=== PATIENT | male | born 1990 | race Two or more races ===

== ENCOUNTER 2019-08-28 17:28 | Emergency (ER) | payer MEDICAID, OTHER ==
[~2019-08-28] VITALS: Ht 188 cm; Wt 113.4 kg
[2019-08-28 17:53] VITALS: BP 150/93
== END 2019-08-28 19:27 | disposition left against medical advice (07) ==
LOC: ER 17:35
DX: M25.512 Pain in left shoulder (principal); Z53.21 Procedure and treatment not carried out due to patient leaving prior to being seen by health care provider
CPT/HCPCS: 73030

== ENCOUNTER 2019-09-29 06:32 | Emergency (ER) | payer MEDICAID ==
[~2019-09-29] VITALS: Ht 188 cm; Wt 113.4 kg
[2019-09-29 06:44] VITALS: BP 152/99
[2019-09-29] MEDS ORDERED: ETOMIDATE (2MG/ML) 20ML VIAL IV ONE (06:45)
== END 2019-09-29 08:48 | disposition home or self-care (01) ==
LOC: ER 06:32
DX: M24.412 Recurrent dislocation, left shoulder (principal); F17.210 Nicotine dependence, cigarettes, uncomplicated
CPT/HCPCS: 23650; 73020; 73030; 99285; J7030

== ENCOUNTER → 2019-11-16 | Emergency (ER) | payer MEDICAID ==
[~2019-11-16] VITALS: Ht 188 cm; Wt 113.4 kg
[~2019-11-16] MED LIST: ETOMIDATE (2MG/ML) 20ML VIAL IV ONE
[2019-11-16 20:30] VITALS: BP 145/89
== END | disposition home or self-care (01) ==
LOC: ER 16:57
DX: M24.412 Recurrent dislocation, left shoulder (principal); F17.210 Nicotine dependence, cigarettes, uncomplicated
CPT/HCPCS: 23650; 73030

== ENCOUNTER 2021-08-16 18:58 | Emergency (ER) | payer MEDICAID ==
[~2021-08-16] VITALS: Ht 188 cm; Wt 104.3 kg
[2021-08-16] MEDS ORDERED: IBUPROFEN 800 MG TAB PO ONE (19:30)
[2021-08-16 20:09] VITALS: BP 161/96
== END 2021-08-16 21:19 | disposition home or self-care (01) ==
LOC: ER 18:59
DX: S20.212A Contusion of left front wall of thorax, initial encounter (principal); W18.39XA Other fall on same level, initial encounter; Y93.39 Activity, other involving climbing, rappelling and jumping off; Y92.89 Other specified places as the place of occurrence of the external cause; Y99.8 Other external cause status
CPT/HCPCS: 71101

== ENCOUNTER 2022-02-09 19:58 | Emergency (ER) | payer MEDICAID ==
[2022-02-09 20:07] VITALS: BP 137/80
[2022-02-09] MEDS ORDERED: DEXA6TAB PO (22:22)
[2022-02-09] MEDS ORDERED: AZITTAB PO (22:22)
[2022-02-09] MEDS ORDERED: PROM1SOL4 PO (22:23)
== END 2022-02-09 22:26 | disposition home or self-care (01) ==
LOC: ER 19:58
DX: J40 Bronchitis, not specified as acute or chronic (principal); F17.210 Nicotine dependence, cigarettes, uncomplicated; F12.10 Cannabis abuse, uncomplicated
CPT/HCPCS: 71045

== ENCOUNTER 2024-05-28 10:17 | Emergency (ER) | payer MEDICAID ==
[~2024-05-28] VITALS: Ht 188 cm; Wt 92.6 kg
[~2024-05-28 10:17] MED LIST changes: +AZITTAB PO; +DEXA6TAB PO; -ETOMIDATE (2MG/ML) 20ML VIAL IV ONE; +PROM1SOL4 PO
--- NOTE | 2024-05-28 10:35 | ED.PDOC ---
Musculoskeletal HPI Comments 34-year-old male presents with a chief complaint of left foot pain after he stepping on a nail yesterday Pain located to volar aspect of metatarsal Was able to remove the foreign body but now complains of pain with ambulation Denies numbness tingling Able to ambulate w/ no assistive devices Last TDAP: unknown Time Seen by MD: 10:29 Primary Care Provider: NONE Reviewed Notes: Nurses Notes, Medications, Allergies Allergies: Coded Allergies: NO KNOWN ALLERGIES (Unverified , 08/28/19) Home Meds Active Scripts Naproxen (Naproxen) 500 Mg Tab, 500 MG PO BID for 7 Days, #14 TAB 0 Refills Prov:VIRA RUFF HANDLE SANDER OPERATOR 05/28/24 Ciprofloxacin Hcl (Cipro) 500 Mg Tab, 1 TAB PO BID for 7 Days, #14 TAB 0 Refills Prov:VIRA RUFF HANDLE SANDER OPERATOR 05/28/24 Promethazine-Dm (Promethazine Dm 6.25-15 mg/5Ml) 1 Rubi Rubi, 1 RUBI PO PRN, #50 ML 0 Refills 5ml every 4 to 6 hours as needed for cough Prov:DOLLY ODONNELL 02/09/22 Azithromycin (Zithromax Z-Lizandro) 250 Mg Tab, 250 MG PO DAILY for 4 Days, #4 TAB 0 Refills Prov:DOLLY ODONNELL 02/09/22 Dexamethasone (Dexamethasone) 6 Mg Tab, 6 MG PO DAILY for 5 Days, #5 TAB 0 Refills Prov:DOLLY ODONNELL 02/09/22 Information Source: Patient Past Medical History PAST MEDICAL HISTORY: Denies Surgical History: Denies all surgeries Family History Family History: Reviewed,noncontributory to illness, Family hx of DM, Family hx of Cancer, Family hx of heart jean-paul Social History Smoker: Cigarettes, Less Than 1 Pack/Day Alcohol: Denies ETOH Use Drugs: Marijuana Lives In: Home All Other Systems: Reviewed and Negative (Per HPI) Physical Exam General Appearance: No Apparent Distress, Normal HEENT: Normal ENT Inspection, Pharynx Normal, TMs Normal Neck: Full Range of Motion, Non-Tender, Normal, Normal Inspection Respiratory: Chest Non-Tender, Lungs Clear, No Accessory Muscle Use, No Respiratory Distress, Normal Breath Sounds Cardiovascular: No Edema, No JVD, No Murmur, No Gallop, Normal Peripheral Pulses, Regular Rate/Rhythm Breast Exam: Deferred Gastrointestinal: No Organomegaly, Non Tender, No Pulsatile Mass, Normal Bowel Sounds, Soft Genitalia: Deferred Pelvic: Deferred Rectal: Deferred Extremities: No calf tenderness, Normal capillary refill, Normal inspection, Normal range of motion, Non-tender, No pedal edema Musculoskeletal : Apperance: Normal Neurologic: Alert, card dealer II-XII nml as Tested, No Motor Deficits, Normal Affect, Normal Mood, No Sensory Deficits Cerebellar Function: Normal Reflexes: Normal Skin: Dry, Normal Color, Warm Lymphatic: No Adenopathy Was a procedure done? Was a procedure done?: No Images 1 - Pinpoint wound Differential Diagnosis EXT Differential Diagnosis: Fracture, Sprain, Other X-Ray, Labs, Meds, VS Vital Signs Date Time Temp Pulse Resp B/P (MAP) Pulse Ox O2 Delivery O2 Flow Rate FiO2 05/28/24 10:53 98.0 86 18 178/94 (122) 99 98.0 05/28/24 10:53 86 05/28/24 10:41 98.0 86 18 178/94 (122) 99 Current Medications Medications (Trade) Dose Ordered Sig/Darvin Route Start Time Stop Time Status Last Admin Diphtheria/ Tetanus/Acell Pertussis (Boostrix T-Dap) 0.5 ml ONCE ONCE IM 05/28/24 10:45 05/28/24 10:49 DC 05/28/24 11:16 Ketorolac Tromethamine (Toradol Injection) 30 mg ONCE ONCE IM 05/28/24 11:30 05/28/24 11:39 DC 05/28/24 11:46 PATIENT: EDDIE BLACKWOODCCT: [id number]: [id number] : 1990 LOC: ER ROOM / BED: / AGE / SEX: 34 / M ADM STATUS: REG ER SERVICE 1034 ORDERING PHYSICIAN: VIRA RUFF NP PROCEDURE(s): LFOOT - L FOOT 3 VIEW XRAY REASON: stepped on nail/ possible fracture or foreign body ORDER NUMBER(s): [id number], ACCESSION NUMBER(s): [id number] PROCEDURE: Left foot radiographs. INDICATION: 34 years old, Male; stepped on nail/ possible fracture or foreign body.. TECHNIQUE: 3 views of the left foot were obtained. COMPARISON: None FINDINGS: There is no evidence of fracture or dislocation. Joint spaces are maintained. The soft tissues are unremarkable. IMPRESSION: 1. No fracture or dislocation. ATED BY: ADELA BERNAL MD DICTATED DATE/TIME: 05/28/241116 SIGNED BY: ADELA BERNAL MD SIGNED DATE/TIME: 05/28/241116 X-Ray, Labs, Meds, VS Comment After ROS physical examination imaging was ordered to rule out body fracture. Findings are unremarkable Tdap updated Antibiotics prescribed for the presenting symptoms Patient ambulated with steady On reevaluation, patient had symptomatic improvement. Patient is stable for discharge at this time. External notes reviewed. Test results and diagnostic imaging interpreted. All diagnostic findings, discharge care, education and instructions provided Follow-up with PCP in 2 to 3 days Patient verbalized understanding and agreed to treatment plan Vital signs stable, afebrile, no acute distress noted Patient ambulatory with strong steady gait Advised to return precautions for any new or worsening symptoms, return to ER immediately for re-evaluation Patient is aware that the purpose of this visit was for an acute medical emergency requiring emergent stabilization. Chronic conditions, including malignancies have not been ruled out. Patient is instructed to follow up with PCP as directed and discharge instructions for continued care and workup. If unable to arrange follow-up, patient is to return to the emergency department for reassessment. Patient (parent or legal guardian if applicable) was given verbal and written discharge instructions and acknowledges understanding. Time of 1ST Reevaluation: 11:31 Reevaluation 1ST: Improved Patient Education/Counseling: Diagnosis, Treatment Family Education/Counseling: Diagnosis, Treatment Departure 1 Departure Time of Disposition: 11:32 Impression: Primary Impression: Foreign body foot/toe Disposition: HOME / SELF CARE / HOMELESS Condition: Fair e-Prescriptions Naproxen (Naproxen) 500 Mg Tab 500 MG PO BID for 7 Days, #14 TAB 0 Refills Prov: VIRA RUFF NP 05/28/24 Ciprofloxacin Hcl (Cipro) 500 Mg Tab 1 TAB PO BID for 7 Days, #14 TAB 0 Refills Prov: VIRA RUFF NP 05/28/24 Critical Care Note Critical Care Time?: No Stability Stability form required: No Heart Score Heart Score: Heart Score Response (Comments) Value History N/A 0 EKG N/A 0 Age N/A 0 Risk Factors N/A 0 Troponin N/A 0 Total 0 VIRA RUFF NP May 28, 2024 10:35
[2024-05-28 10:53] VITALS: BP 178/94; PULSE 86; RESP 18; TEMP 98; O2SAT 99
[2024-05-28] MEDS: TETANUS-DIPTH-ACEL PERTUSSIS 0.5ML SYR Tdap IM ONE (11:16)
--- NOTE | 2024-05-28 11:19 | DVH ---
PROCEDURE: Left foot radiographs. INDICATION: 34 years old, Male; stepped on nail/ possible fracture or foreign body.. TECHNIQUE: 3 views of the left foot were obtained. COMPARISON: None FINDINGS: There is no evidence of fracture or dislocation. Joint spaces are maintained. The soft tis sues are unremarkable. IMPRESSION: 1. No fracture or dislocation.
[2024-05-28] MEDS ORDERED: CIPR-173 PO (11:32)
[2024-05-28] MEDS ORDERED: NAPR-746 PO (11:32)
[2024-05-28] MEDS: KETOROLAC TROMETH 30 MG/ML 1ML VIAL IM ONE (11:46)
== END 2024-05-28 11:33 | disposition home or self-care (01) ==
LOC: ER 10:17
DX: S90.852A Superficial foreign body, left foot, initial encounter (principal); F17.210 Nicotine dependence, cigarettes, uncomplicated; F12.90 Cannabis use, unspecified, uncomplicated; Z79.899 Other long term (current) drug therapy; X58.XXXA Exposure to other specified factors, initial encounter; Y93.89 Activity, other specified; Y92.89 Other specified places as the place of occurrence of the external cause; Y99.8 Other external cause status
CPT/HCPCS: 73630; 90471; 90715; 96372; 99284; J1885

== ENCOUNTER 2024-12-20 08:15 | Emergency (ER) | payer MEDICAID ==
[~2024-12-20] VITALS: Ht 188 cm; Wt 92.0 kg
[~2024-12-20 08:15] MED LIST changes: +CIPR-173 PO; +NAPR-746 PO
[2024-12-20] MEDS: HYDROcodone-ACET 7.5/325MG TAB PO ONE (10:14)
[2024-12-20] MEDS: IBUPROFEN 800 MG TAB PO ONE (10:14)
[2024-12-20 10:25] LABS: Hematocrit 51.2 % (41.0-53.0); Hemoglobin 17.5 g/dL (13.5-17.5); Mean Corpuscular Hemoglobin 31.3 pg (28.0-32.0); Mean Corpuscular Hgb Conc. 34.2 g/dL (32.0-36.0); Mean Corpuscular Volume 91.5 fL (80.0-100.0); Platelet Count (auto) 158 10^3/uL (140-450); Red Blood Cells 5.59 10^6/uL (4.5-5.90); Red Cell Distribution Width 13.6 % (11.8-14.3)
[2024-12-20 10:29] LABS: Basophils % (manual) 0 (0.0-2.0); Blast Cells 0; Eosinophils % (manual) 0 (0-7); Metamyelocytes % 0; Promyelocytes % 0; Reactive Lymphocytes 0
[2024-12-20 10:32] LABS: Anion Gap 7 (5-15); Carbon Dioxide 27 mmol/L (20-31); Chloride 104 mmol/L (98-107); Potassium 4.2 mmol/L (3.5-5.1); Sodium 138 mmol/L (136-145)
[2024-12-20 10:35] LABS: Calcium 10.7 mg/dL (8.7-10.4)
[2024-12-20 10:38] LABS: BUN/Creatinine Ratio 9.1 (10.0-20.0); Blood Urea Nitrogen 10 mg/dL (9-23)
[2024-12-20 10:41] LABS: Glucose 131 mg/dL (74-106)
[2024-12-20 10:50] LABS: Band Neutrophils % (manual) 8; Lymphocytes % (manual) 3 (10.0-50.0); Monocytes % (manual) 8 (0-12); Myelocytes % 2; Platelet Estimate Adequate
--- NOTE | 2024-12-20 10:51 | DVH ---
Procedure: XY R TIB FIB XRAY 12/20/2024 10:02 AM TECHNIQUE: XY R TIB FIB XRAY Indication: r/o fracture of proxima tib Comparison: None FINDINGS: Bones: No acute fracture or dislocation. Joint spaces are maintained. Soft tissues: Unremarkable. No radiopaque foreign body. IMPRESSION: 1. No acute osseous abnormality.
--- NOTE | 2024-12-20 10:57 | ED.PDOC ---
Musculoskeletal HPI Comments 34 year old male presents to the emergency department with a chief complaint of possible fracture of LT lateral weeks. Onset 3 days ago. Patient jumped off a trailer when he hit LT weeks on trailer, noticed small abrasions. For the past 2 days patient has been experiencing pain, worsen with walking, improves when sitting as well as erythema and tenderness of LT weeks, has been applying Neosporin to abrasions, has taken Tylenol for pain with no improvement of symptoms. No other symptoms or modifying factors present at this time. Denies masses around the knee Denies popping/locking/giving out of the knee Denies fever chills night sweats nausea vomiting Denies previous surgeries to the knee nor significant injury Chief Complaint: Lower Extremity Time Seen by MD: 10:00 Primary Care Provider: NONE Reviewed Notes: Nurses Notes, Medications, Allergies Allergies: Coded Allergies: NO KNOWN ALLERGIES (Unverified , 08/28/19) Home Meds Active Scripts Naproxen (Naproxen) 375 Mg Tab, 1 TAB PO BID for 10 Days, #20 TAB 0 Refills Prov:VIRA RUFF FORMER HAND 12/20/24 Cephalexin Monohydrate (Cephalexin) 500 Mg Cap, 1 CAP PO QID for 7 Days, #28 CAP 0 Refills Prov:VIRA RUFF FORMER HAND 12/20/24 Naproxen (Naproxen) 500 Mg Tab, 500 MG PO BID for 7 Days, #14 TAB 0 Refills Prov:VIRA RUFF FORMER HAND 05/28/24 Ciprofloxacin Hcl (Cipro) 500 Mg Tab, 1 TAB PO BID for 7 Days, #14 TAB 0 Refills Prov:VIRA RUFF FORMER HAND 05/28/24 Promethazine-Dm (Promethazine Dm 6.25-15 mg/5Ml) 1 Rubi Rubi, 1 RUBI PO PRN, #50 ML 0 Refills 5ml every 4 to 6 hours as needed for cough Prov:DOLLY ODONNELL 02/09/22 Azithromycin (Zithromax Z-Lizandro) 250 Mg Tab, 250 MG PO DAILY for 4 Days, #4 TAB 0 Refills Prov:DOLLY ODONNELL 02/09/22 Dexamethasone (Dexamethasone) 6 Mg Tab, 6 MG PO DAILY for 5 Days, #5 TAB 0 Refills Prov:DOLLY ODONNELL 02/09/22 Information Source: Patient Mode of Arrival: Wheelchair Location: Left Extremity Location: Knee, Tibia Timing: Days Prehospital treatment: Pain Meds (Tylenol ), Treatment (Neosporin) Severity: Moderate Able to Move Extremity: Yes Bear Weight: Limited Pain: Moderate Mechanism: Blunt Trauma Circumstances: Other Onset of Symptoms: After Trauma Symptoms: Pain Last Tetanus: UTD Associated signs and symptoms: Abrasion (LT weeks) Past Medical History PAST MEDICAL HISTORY: Denies Surgical History: Denies all surgeries Family History Family History: Reviewed,noncontributory to illness, Family hx of DM, Family hx of Cancer, Family hx of heart jean-paul Social History Smoker: Cigarettes, Less Than 1 Pack/Day Alcohol: Denies ETOH Use Drugs: Marijuana Lives In: Home All Other Systems: Reviewed and Negative (as per HPI) Physical Exam General Appearance: Normal HEENT: Normal ENT Inspection, Pharynx Normal, TMs Normal Neck: Full Range of Motion, Non-Tender, Normal, Normal Inspection Respiratory: Chest Non-Tender, Lungs Clear, No Accessory Muscle Use, No Respiratory Distress, Normal Breath Sounds Cardiovascular: No Edema, No JVD, No Murmur, No Gallop, Normal Peripheral Pulses, Regular Rate/Rhythm Breast Exam: Deferred Gastrointestinal: No Organomegaly, Non Tender, No Pulsatile Mass, Normal Bowel Sounds, Soft Genitalia: Deferred Pelvic: Deferred Rectal: Deferred Extremities: No calf tenderness, Normal capillary refill, Non-tender Musculoskeletal : Location: Left Extremity Location: Tibia (noticable abrasion to lateral LT tibia, swellingn noted, visible erythema, warm to palpation with no fluctuance on palpation, no step offs on palpation to the tibia, no streaking or pain to patella. ), Other (Full active ROM of knee and ankle, with no pain to palpation) Neurologic: Alert, steam conditioner operator II-XII nml as Tested, No Motor Deficits, Normal Affect, Normal Mood, No Sensory Deficits Cerebellar Function: Normal Reflexes: Normal Skin: Dry, Normal Color, Warm Lymphatic: No Adenopathy Was a procedure done? Was a procedure done?: No Images 1 - well defined erythema aprox 6x8 cm. Differential Diagnosis EXT Differential Diagnosis: Cellulitis, Fracture, Sprain X-Ray, Labs, Meds, VS Vital Signs Date Time Temp Pulse Resp B/P (MAP) Pulse Ox O2 Delivery O2 Flow Rate FiO2 12/20/24 11:33 98.3 86 16 138/86 (103) 98 98.3 12/20/24 11:14 98.2 12/20/24 10:14 99.2 12/20/24 09:57 85 18 97 Room Air 12/20/24 09:57 99.2 85 18 168/102 (124) 97 99.2 12/20/24 08:25 98.1 84 18 165/86 (112) 97 98.1 Lab Test 12/20/24 10:08 Range/Units White Blood Count 26.0 H 4.4-10.8 10^3/uL Red Blood Count 5.59 4.5-5.90 10^6/uL Hemoglobin 17.5 13.5-17.5 g/dL Hematocrit 51.2 41.0-53.0 % Mean Corpuscular Volume 91.5 80.0-100.0 fL Mean Corpuscular Hemoglobin 31.3 28.0-32.0 pg Mean Corpuscular Hemoglobin Concent 34.2 32.0-36.0 g/dL Red Cell Distribution Width 13.6 11.8-14.3 % Platelet Count 158 140-450 10^3/uL Mean Platelet Volume 7.8 6.9-10.8 fL Neutrophils (%) (Auto) 37.0-80.0 % Lymphocytes (%) (Auto) 10.0-50.0 % Monocytes (%) (Auto) 0.0-12.0 % Basophils (%) (Auto) 0.0-2.0 % Neutrophils # (Auto) 1.6-8.6 10 ^3/uL Lymphocytes # (Auto) 0.4-5.4 10 ^3/uL Monocytes # (Auto) 0-1.3 10 ^3/uL Differential Total Cells Counted 100.0 100 Neutrophils % (Manual) 79 37.0-80.0 Band Neutrophils % (Manual) 8 Lymphocytes % (Manual) 3 L 10.0-50.0 Monocytes % (Manual) 8 0-12 Eosinophils % (Manual) 0 0-7 Basophils % (Manual) 0 0.0-2.0 Metamyelocytes % (manual) 0 Myelocytes % (Manual) 2 Promyelocytes % (Manual) 0 Blast Cells % (Manual) 0 Reactive Lymphocytes 0 Platelet Estimate Adequate Sodium Level 138 136-145 mmol/L Potassium Level 4.2 3.5-5.1 mmol/L Chloride Level 104 98-107 mmol/L Carbon Dioxide Level 27 20-31 mmol/L Anion Gap 7 5-15 Blood Urea Nitrogen 10 9-23 mg/dL Creatinine 1.10 0.700-1.30 mg/dL Glomerular Filtration Rate Calc 91 >90 mL/min BUN/Creatinine Ratio 9.1 L 10.0-20.0 Serum Glucose 131 H 74-106 mg/dL Calcium Level 10.7 H 8.7-10.4 mg/dL Current Medications Medications (Trade) Dose Ordered Sig/Darvin Route Start Time Stop Time Status Last Admin Acetaminophen/ Hydrocodone Bitart (Custer 7.5/325MG Tab) 1 tab ONCE ONCE PO 12/20/24 10:00 12/20/24 10:01 DC 12/20/24 10:14 Ibuprofen (Motrin Tablet) 800 mg ONCE ONCE PO 12/20/24 10:00 12/20/24 10:01 DC 12/20/24 10:14 X-Ray, Labs, Meds, VS Comment 34 year old male presents to the emergency department with a chief complaint of possible fracture of LT weeks pain onset 3 days. CBC was ordered to exclude anemia, blood loss, or infection. BMP was ordered to exclude electrolyte abnormalities, renal failure, dehydration, hyperglycemia WBC:26.0, BMP reviewed History and findings consistent with cellulitis. The area of infection does not appear to have any loculations/induration based on physical exam. The patient did not require an incision and drainage. Patient well appearing. VSS. Given History, Exam, and Workup I have low suspicion for Necrotizing Fasciitis, Abscess, Osteomyelitis, DVT or other emergent problem as a cause for this presentation. Low risk for treatment failure based on history. The patient will be treated with antibiotics. Prescribed p.o. antibiotics for presentation of symptoms Complete course of antibiotic therapy even if symptoms improve or resolve. There should be no leftover antibiotics as this can lead to antibiotic resistant bacteria and even worse infection. Patient verbalized understanding. Potential side effects discussed with patient including abdominal pain, nausea, diarrhea. Additional MDM Review of External, Non-ED records: External records reviewed. Discussion with independent historian (EMS, family) history obtained from the patient at bedside Chronic conditions affecting care: none Social determinants of health affecting care: smokes marijuana Consideration of admission (observation or admission): I considered escalation of care to admission for this patient, however given the reassuring workup, the patient is safe for outpatient management. Time of 1ST Reevaluation: 10:30 Reevaluation 1ST: Unchanged Patient Education/Counseling: Diagnosis, Treatment, Need For Follow Up Family Education/Counseling: No Family Present Departure 1 Departure Time of Disposition: 11:06 Impression: Primary Impression: Cellulitis of left leg Disposition: 01 HOME / SELF CARE / HOMELESS Condition: Guarded e-Prescriptions Naproxen (Naproxen) 375 Mg Tab 1 TAB PO BID for 10 Days, #20 TAB 0 Refills Prov: VIRA RUFF FORMER HAND 12/20/24 Cephalexin Monohydrate (Cephalexin) 500 Mg Cap 1 CAP PO QID for 7 Days, #28 CAP 0 Refills Prov: VIRA RUFF NP 12/20/24 Critical Care Note Critical Care Time?: No Stability Stability form required: No Heart Score Heart Score: Heart Score Response (Comments) Value History N/A 0 EKG N/A 0 Age N/A 0 Risk Factors N/A 0 Troponin N/A 0 Total 0 I personally scribed for VIRA RUFF NP ([email or web address]) on 12/20/24 at 10:57. Electronically submitted by Melissa Banerjee ([email or web address]). I personally scribed for VIRA RUFF NP ([email or web address]) on 12/20/24 at 11:14. Electronically submitted by Melissa Banerjee ([email or web address]). VIRA RUFF NP December 20, 2024 10:57
[2024-12-20] MEDS ORDERED: CEPH500C PO (11:08)
[2024-12-20] MEDS ORDERED: NAPR-957 PO (11:08)
[2024-12-20 11:33] VITALS: BP 138/86; PULSE 86; RESP 16; TEMP 98.3; O2SAT 98
== END 2024-12-20 11:34 | disposition home or self-care (01) ==
LOC: ER 08:15
DX: L03.116 Cellulitis of left lower limb (principal); F17.210 Nicotine dependence, cigarettes, uncomplicated; F12.90 Cannabis use, unspecified, uncomplicated
CPT/HCPCS: 36415; 73590; 80048; 85007; 85027

== ENCOUNTER 2024-12-21 21:27 | Inpatient (IN) | payer MEDICAID ==
[~2024-12-21] VITALS: Ht 188 cm; Wt 96.6 kg
[~2024-12-21 21:27] MED LIST changes: +CEPH500C PO; +NAPR-957 PO
--- NOTE | 2024-12-21 22:32 | ED.PDOC ---
Musculoskeletal HPI Comments HPI: Poor Historian. 34-year-old male presents to emergency department for evaluation of right lower extremity wound. Patient was here four days ago for a superficial scratch that he suffered when he was jumping in the back of his trailer. Patient was prescribed Keflex and Naprosyn which she has been taking daily. Patient states that the symptoms are getting worse. The redness and the pain and swelling is getting worse. Patient comes to the emergency department for further evaluation. Past Medical History: Denies any Past Surgical History: Denies any REVIEW OF SYSTEMS: CONSTITUTIONAL: Denies acute: fever, diaphoresis, HEAD: Denies acute: headache, photophobia Eyes: Denies acute: Double vision, vision loss, eye pain, eye discharge. EARS: Denies acute: tinnitus, hearing loss, ear discharge, ear pain, THROAT: Denies acute: sore throat, swelling, difficulty swallowing , pain with swallowing, change in voice. NECK: Denies acute: neck pain, neck swelling, stiff neck. HEART: Denies acute : chest pain, palpitations, LUNGS: Denies acute: SOB, wheezing, cough, hemoptysis ABDOMEN: Denies acute: abdominal pain, Nausea, Vomiting, diarrhea, melena , hematemesis, hematochezia SKIN: Denies acute: lesions, itchiness. EXTREMITIES: Denies acute: calf pain, numbness, tingling, weakness, denies pain in extremity. Denies acute: Low back pain. Neuro: Denies acute: focal neurological deficit, motor or sensory focal neurological deficit, tremors, seizure like activity, confusion, change in mental status, loss of bowel or bladder function, cauda equina like symptoms. : Denies acute: dysuria, hematuria, flank pain, increase in urinary frequency. PSYCH: Denies acute: hallucination, suicidal ideation, homicidal ideation. PHYSICAL EXAM: General: ----[id number]----acute distress, awake and alert. Head: normocephalic, atraumatic. Neck: supple, trachea is midline, no swelling. Throat: Normal phonation. Eyes:, no erythema, no purulent discharge, no proptosis, no icterus. Heart: regular rate, regular rhythm, no significant murmur appreciated. Lungs: no apparent respiratory distress, Able to speak in full sentences. No wheezing, no rhonchi, no crackles. No stridors Clear to auscultation bilaterally. Abdomen: non tender to palpation, non distended, soft, no guarding, no rebound, + bowel sounds. Neuro: Awake, Alert, oriented to name, self, situation, follows commands GCS=15. Speech is normal. Skin: no petechia, no purpura, no cyanosis, non-pale, not jaundice. Evaluation of the area of complaint: Right lower extremity noted wound that is inflamed erythematous and tender to palpation with some swelling. The wound is [id number] on the anterior lateral aspect of the weeks. No specific calf tenderness. Patient is neurovascularly intact in the affected extremity. Makes eye contact. moves all four extremities. Face: no apparent facial droop. ED COURSE: Time Seen by MD: 21:47 Primary Care Provider: NONE Reviewed Notes: Nurses Notes, Medications, Allergies Allergies: Coded Allergies: NO KNOWN ALLERGIES (Unverified , 08/28/19) Home Meds Active Scripts Naproxen (Naproxen) 375 Mg Tab, 1 TAB PO BID for 10 Days, #20 TAB 0 Refills Prov:VIRA RUFF RESIDENTIAL CAREGIVER 12/20/24 Cephalexin Monohydrate (Cephalexin) 500 Mg Cap, 1 CAP PO QID for 7 Days, #28 CAP 0 Refills Prov:VIRA RUFF RESIDENTIAL CAREGIVER 12/20/24 Naproxen (Naproxen) 500 Mg Tab, 500 MG PO BID for 7 Days, #14 TAB 0 Refills Prov:VIRA RUFF RESIDENTIAL CAREGIVER 05/28/24 Ciprofloxacin Hcl (Cipro) 500 Mg Tab, 1 TAB PO BID for 7 Days, #14 TAB 0 Refills Prov:VIRA RUFF RESIDENTIAL CAREGIVER 05/28/24 Promethazine-Dm (Promethazine Dm 6.25-15 mg/5Ml) 1 Rubi Rubi, 1 RUBI PO PRN, #50 ML 0 Refills 5ml every 4 to 6 hours as needed for cough Prov:DOLLY ODONNELL 02/09/22 Azithromycin (Zithromax Z-Lizandro) 250 Mg Tab, 250 MG PO DAILY for 4 Days, #4 TAB 0 Refills Prov:DOLLY ODONNELL 02/09/22 Dexamethasone (Dexamethasone) 6 Mg Tab, 6 MG PO DAILY for 5 Days, #5 TAB 0 Refills Prov:SUKHJINDERFrancoiseDOLLY HERNANDEZ 02/09/22 Information Source: Patient Location: Right Past Medical History PAST MEDICAL HISTORY: Denies Surgical History: Denies all surgeries Family History Family History: Reviewed,noncontributory to illness, Family hx of DM, Family hx of Cancer, Family hx of heart jean-paul Social History Smoker: Cigarettes, Less Than 1 Pack/Day Alcohol: Denies ETOH Use Drugs: Marijuana Lives In: Home Was a procedure done? Was a procedure done?: No Differential Diagnosis EXT Differential Diagnosis: Cellulitis, CHF, Deep Vein Thrombosis, Compartment Syndrome, Fracture, Sprain, Dislocation, Laceration, Gout, DJD, Contusion, Strain, Rheumatoid, Septic, Neurovascular injury, Arthritis, Bursitis, Other (Osteomyelitis, deep tissue infection, Leg swellingDdx include but not limited to DVT, ischemic limb, pitting edema, volume overload, CHF, cellulitis, hematoma, compartment syndrome, dependent edema, venous stasis.) X-Ray, Labs, Meds, VS Vital Signs Date Time Temp Pulse Resp B/P (MAP) Pulse Ox O2 Delivery O2 Flow Rate FiO2 12/21/24 22:41 99.2 95 19 107/77 (87) 97 99.2 Lab Test 12/21/24 22:54 Range/Units White Blood Count 19.6 H 4.4-10.8 10^3/uL Red Blood Count 5.24 4.5-5.90 10^6/uL Hemoglobin 16.3 13.5-17.5 g/dL Hematocrit 47.9 41.0-53.0 % Mean Corpuscular Volume 91.3 80.0-100.0 fL Mean Corpuscular Hemoglobin 31.1 28.0-32.0 pg Mean Corpuscular Hemoglobin Concent 34.0 32.0-36.0 g/dL Red Cell Distribution Width 14.1 11.8-14.3 % Platelet Count 156 140-450 10^3/uL Mean Platelet Volume 8.2 6.9-10.8 fL Neutrophils (%) (Auto) 37.0-80.0 % Lymphocytes (%) (Auto) 10.0-50.0 % Monocytes (%) (Auto) 0.0-12.0 % Basophils (%) (Auto) 0.0-2.0 % Neutrophils # (Auto) 1.6-8.6 10 ^3/uL Lymphocytes # (Auto) 0.4-5.4 10 ^3/uL Monocytes # (Auto) 0-1.3 10 ^3/uL Differential Total Cells Counted 100.0 100 Neutrophils % (Manual) 85 H 37.0-80.0 Band Neutrophils % (Manual) 2 Lymphocytes % (Manual) 4 L 10.0-50.0 Monocytes % (Manual) 9 0-12 Eosinophils % (Manual) 0 0-7 Basophils % (Manual) 0 0.0-2.0 Metamyelocytes % (manual) 0 Myelocytes % (Manual) 0 Promyelocytes % (Manual) 0 Blast Cells % (Manual) 0 Reactive Lymphocytes 0 Platelet Estimate Adequate Erythrocyte Sedimentation Rate 60 H 0-20 mm/hr Sodium Level 139 136-145 mmol/L Potassium Level 3.5 3.5-5.1 mmol/L Chloride Level 102 98-107 mmol/L Carbon Dioxide Level 29 20-31 mmol/L Anion Gap 8 5-15 Blood Urea Nitrogen 14 9-23 mg/dL Creatinine 0.95 0.700-1.30 mg/dL Glomerular Filtration Rate Calc 109 >90 mL/min BUN/Creatinine Ratio 14.7 10.0-20.0 Serum Glucose 121 H 74-106 mg/dL Lactic Acid Level 1.8 0.4-2.0 mmol/L Calcium Level 9.6 8.7-10.4 mg/dL Total Bilirubin 0.7 0.2-1.0 mg/dL Aspartate Amino Transferase (AST) 17 13-40 U/L Alanine Aminotransferase (ALT) 21 7-40 U/L Alkaline Phosphatase 106 46-116 U/L Creatine Kinase 20 L 46-171 U/L C-Reactive Protein High Sensitivity > 20 H <1.0 mg/dL Total Protein 7.0 5.7-8.2 g/dL Albumin 4.4 3.2-4.8 g/dL Thyroid Stimulating Hormone (TSH) 1.51 0.55-4.78 uIU/mL Current Medications Medications (Trade) Dose Ordered Sig/Darvin Route Start Time Stop Time Status Last Admin Acetaminophen/ Hydrocodone Bitart ([place] 5/325MG Tab) 1 tab ONCE ONCE PO 12/21/24 22:30 12/21/24 22:31 DC 12/22/24 05:20 Vancomycin HCl 250 ml @ 250 mls/hr ONCE ONCE IV 12/21/24 22:45 12/21/24 23:44 DC 12/22/24 05:25 Piperacillin Sod/ Tazobactam Sod 100 ml @ 100 mls/hr ONCE ONCE IV 12/21/24 22:45 12/21/24 23:44 DC 12/22/24 07:40 Sodium Chloride 1,000 ml @ 1,000 mls/hr Q1H ONCE IV 12/21/24 23:30 12/22/24 00:29 DC 12/22/24 05:34 Sodium Chloride 1,000 ml @ 1,000 mls/hr Q1H ONCE IV 12/21/24 23:30 12/22/24 00:29 DC 12/22/24 06:17 [place] [id number] Ph: [phone] DIAGNOSTIC IMAGING Diagnostic Imaging Report : [id number] Signed PATIENT: FELICIANO BLACKWOOD ACCT: [id number] UNIT: [id number] : 1990 LOC: OVERFLOW ROOM / BED: [address] [place] [address] AGE / SEX: 34 / M ADM STATUS: ADM IN SERVICE 25 ORDERING PHYSICIAN: AVINASH NUNEZ DO PROCEDURE(s): RTLEXW - RT LOWER EXTREMITY W CON REASON: LEG WOUND PAIN REDNESS SWELLING ORDER NUMBER(s): [id number], ACCESSION NUMBER(s): [id number] CLINICAL INDICATION: LEG WOUND PAIN REDNESS SWELLING TECHNIQUE: CT of the right lower extremity was performed with 100 mL Omnipaque 300 intravenous contrast. Sagittal and coronal reformatted images are provided. COMPARISON: None CT Dose: CTDI volume is 11.1 mGy. Dose-length product is 1224.4 mGy*cm FINDINGS: No fracture or dislocation. Joint spaces are maintained. No cortical erosion or destruction. Soft tissue swelling in the anterior and lateral right lower extremity from about the knee to ankle joint. No fluid collection. IMPRESSION: 1. Soft tissue swelling which may reflect cellulitis. No fluid collection. 2. No cortical destruction to suggest osteomyelitis. All CT scans at this medical facility are performed using dose modulation techniques as appropriate to a performed exam including the following: Automated exposure control was utilized; adjustment of the MA and/or KV according to patient size; and use of iterative reconstruction technique. ATED BY: ADELA BERNAL MD DICTATED DATE/TIME: 12/22/24439 SIGNED BY: ADELA BERNAL MD SIGNED DATE/TIME: 12/22/24439 CC: [place] [id number] Ph: [phone] DIAGNOSTIC IMAGING Diagnostic Imaging Report : [id number] Signed PATIENT: FELICIANO BLACKWOOD ACCT: [id number] UNIT: [id number] : 1990 LOC: ER ROOM / BED: / AGE / SEX: 34 / M ADM STATUS: REG ER SERVICE 25 ORDERING PHYSICIAN: AVINASH NUNEZ DO PROCEDURE(s): RLDVT - RT Lower DVT REASON: LEG WOUND PAIN REDNESS SWELLING ORDER NUMBER(s): [id number], ACCESSION NUMBER(s): [id number] Right lower extremity venous duplex Clinical History: LEG WOUND PAIN REDNESS SWELLING Comparison: None Technique: Duplex Doppler evaluation of the deep venous system of the right lower extremity from the common femoral vein to the popliteal vein including color Doppler and spectral/pulsed waveform analysis was performed. Findings: According to the caseworker protective services's notes, the patient refused examination in the region of the right common femoral vein and great saphenous vein. The superficial femoral vein demonstrates appropriate compressibility and waveform variability. The popliteal vein demonstrates appropriate compressibility and waveform variab ility. There is normal compressibility at the tibioperoneal trunk. Impression: No evidence of venous thrombosis in the visualized deep venous system of the right leg. According to the caseworker protective services's notes, the patient refused examination in the region of right common femoral vein and great saphenous vein. ATED BY: ANJEL GONZALEZ MD DICTATED DATE/TIME: 12/21/242323 SIGNED BY: ANJEL GONZALEZ MD SIGNED DATE/TIME: 12/21/242323 CC: Time of 1ST Reevaluation: 23:22 Reevaluation 1ST: Unchanged Time of 2ND Reevaluation: 00:48 (As of this time, CT scan of the extremity to rule out any deep tissue infection or necrotizing fasciitis has not been done yet. I already started antibiotics.) Patient Education/Counseling: Diagnosis, Treatment Family Education/Counseling: Other Comments Patient has been already been on antibiotics for the last four days. That is why blood cultures were not obtained. Sepsis protocol was initiated with weight based fluid resuscitation. Patient presented with the above HPI.---Leg pain swelling and redness---workup was initiated. patient was found with the above mentioned diagnosis. the following medications were ordered: please refer to order lists of meds and tests obtained by myself Dr. Nunez. Patient ED course and VS have been stabilized. Patient has been reassessed in the ED and remained in a stable condition. Pertinent incidental findings were discussed with the patient and/or family. Patient/family voices understanding and is agreeable with plan. Patient has been observed in the ED adequate length of time to insure improvement/stability. Escalation of care considered: Consideration of escalation to observation or admission CT scan of the extremity and ultrasound of the extremity were obtained. Patient was ADMITTED to the medicine team for further evaluation and treatment of their presentation. All the reports of any imaging studies that were ordered by myself were reviewed by myself. Departure 1 Departure Time of Disposition: 22:39 Impression: Primary Impression: Cellulitis of right leg Additional Impressions: Leukocytosis Sepsis Disposition: ADMITTED INPATIENT Admit to: [facility] Condition: Guarded Discharged With: Self Critical Care Note Critical Care Time?: Yes (45 min-critical care time only) AVINASH NUNEZ DO December 21, 2024 22:32
[2024-12-21 23:15] LABS: Hematocrit 47.9 % (41.0-53.0); Hemoglobin 16.3 g/dL (13.5-17.5); Mean Corpuscular Hemoglobin 31.1 pg (28.0-32.0); Mean Corpuscular Volume 91.3 fL (80.0-100.0); Platelet Count (auto) 156 10^3/uL (140-450); Red Blood Cells 5.24 10^6/uL (4.5-5.90); Red Cell Distribution Width 14.1 % (11.8-14.3); White Blood Cell 19.6 10^3/uL (4.4-10.8)
[2024-12-21 23:17] LABS: Basophils % (manual) 0 (0.0-2.0); Blast Cells 0; Eosinophils % (manual) 0 (0-7); Metamyelocytes % 0; Myelocytes % 0; Promyelocytes % 0; Reactive Lymphocytes 0
--- NOTE | 2024-12-21 23:26 | DVH ---
Right lower extremity venous duplex Clinical History: LEG WOUND PAIN REDNESS SWELLING Comparison: None Technique: Duplex Doppler evaluation of the deep venous system of the right lower extremity from the common femo ral vein to the popliteal vein including color Doppler and spectral/pulsed waveform analysis was perf ormed. Findings: According to the model set artist's notes, the patient refused examination in the region of the right com mon femoral vein and great saphenous vein. The superficial femoral vein demonstrates appropriate compressibility and waveform variability. The popliteal vein demonstrates appropriate compressibility and waveform variability. There is normal compressibility at the tibioperoneal trunk. Impression: No evidence of venous thrombosis in the visualized deep venous system of the right leg. According to the model set artist's notes, the patient refused examination in the region of right common femoral vein and great saphenous vein.
[2024-12-21 23:27] LABS: Alanine Aminotransferase 21 U/L (7-40); Albumin 4.4 g/dL (3.2-4.8); Alkaline Phosphatase 106 U/L (46-116); Anion Gap 8 (5-15); Aspartate Aminotransferase 17 U/L (13-40); BUN/Creatinine Ratio 14.7 (10.0-20.0); Blood Urea Nitrogen 14 mg/dL (9-23); Calcium 9.6 mg/dL (8.7-10.4); Carbon Dioxide 29 mmol/L (20-31); Chloride 102 mmol/L (98-107); Potassium 3.5 mmol/L (3.5-5.1); Sodium 139 mmol/L (136-145)
[2024-12-21 23:28] LABS: Bilirubin, Total 0.7 mg/dL (0.2-1.0)
[2024-12-21 23:29] LABS: Creatine Kinase IFCC 20 U/L (46-171); Glucose 121 mg/dL (74-106)
[2024-12-21 23:39] LABS: Erythrocyte Sedimentation Rate 60 mm/hr (0-20)
--- NOTE | 2024-12-21 23:44 | DVHHP2 ---
History of Present Illness History of Present Illness Patient is 34 years old male with no significant past medical history came with a complaint of right leg pain. As per patient he scratches right leg couple of days before when he was jumping office trailer. Got a scratch. He came with a complain to the ER 2 days before and he was discharged with Keflex and naproxen. But his right leg swelling as got worse, is getting more swollen, red and tender and reddish. Pain was sharp 10/10, increased with movement. Patient denied any chest pain, shortness of breath, dysuria, diarrhea palpitation or fev er. Initial lab workup revealed leukocytosis with WBC 19.6, ESR 60. Lactic acid 1.8. Right lower extremity Venous Doppler negative for DVT Past Medical History None Past Surgical History None Family History Mom Has diabetes mellitus, Dad arthritis Past Social History Lives with parents, smokes cigarettes, does marijuana, denies alcoholism. Review of Systems Review of Systems Allergy- NKDA Patient was seen today at the bedside. Cardiovascular- deny acute chest pain or shortness of breath or cough or palpitation Respiratory denies cough or short of breath or wheezing Gastrointestinal- denies any rectal bleeding, nausea or vomiting Neurological- denies acute dysarthria, dysphagia, change in vision Psychiatry- denies depression or SI or HI Skin- denies acute rash or purpura Allergies: Coded Allergies: NO KNOWN ALLERGIES (Unverified , 08/28/19) Exam Vital Signs Vital Signs Date Time Temp Pulse Resp B/P (MAP) Pulse Ox O2 Delivery O2 Flow Rate FiO2 12/21/24 22:41 99.2 95 19 107/77 (87) 97 99.2 Exam General examination- awake, alert, oriented D HEENT- PEERLA, no acute nasal discharge Cardiovascular- S1-S2 audible, rate and rhythm regular, no murmur Respiratory- CTAB, no wheeze or rhonchi Gastrointestinal-nontender, bowel sound+. Nondistended Musculoskeletal-no acute joint swelling or tenderness or redness Lower extremity- right leg swollen, edematous, warm, tender to touch Neurological- cranial nerves intact, no acute dysarthria or dysphagia Psychiatry- denies depression or SI or HI Skin- no acute rash or purpura Labs/Xrays Labs Test 12/21/24 22:54 Range/Units White Blood Count 19.6 H 4.4-10.8 10^3/uL Red Blood Count 5.24 4.5-5.90 10^6/uL Hemoglobin 16.3 13.5-17.5 g/dL Hematocrit 47.9 41.0-53.0 % Mean Corpuscular Volume 91.3 80.0-100.0 fL Mean Corpuscular Hemoglobin 31.1 28.0-32.0 pg Mean Corpuscular Hemoglobin Concent 34.0 32.0-36.0 g/dL Red Cell Distribution Width 14.1 11.8-14.3 % Platelet Count 156 140-450 10^3/uL Mean Platelet Volume 8.2 6.9-10.8 fL Neutrophils (%) (Auto) 37.0-80.0 % Lymphocytes (%) (Auto) 10.0-50.0 % Monocytes (%) (Auto) 0.0-12.0 % Basophils (%) (Auto) 0.0-2.0 % Neutrophils # (Auto) 1.6-8.6 10 ^3/uL Lymphocytes # (Auto) 0.4-5.4 10 ^3/uL Monocytes # (Auto) 0-1.3 10 ^3/uL Erythrocyte Sedimentation Rate 60 H 0-20 mm/hr Sodium Level 139 136-145 mmol/L Potassium Level 3.5 3.5-5.1 mmol/L Chloride Level 102 98-107 mmol/L Carbon Dioxide Level 29 20-31 mmol/L Anion Gap 8 5-15 Blood Urea Nitrogen 14 9-23 mg/dL Creatinine 0.95 0.700-1.30 mg/dL Glomerular Filtration Rate Calc 109 >90 mL/min BUN/Creatinine Ratio 14.7 10.0-20.0 Serum Glucose 121 H 74-106 mg/dL Lactic Acid Level 1.8 0.4-2.0 mmol/L Calcium Level 9.6 8.7-10.4 mg/dL Total Bilirubin 0.7 0.2-1.0 mg/dL Aspartate Amino Transferase (AST) 17 13-40 U/L Alanine Aminotransferase (ALT) 21 7-40 U/L Alkaline Phosphatase 106 46-116 U/L Creatine Kinase 20 L 46-171 U/L Total Protein 7.0 5.7-8.2 g/dL Albumin 4.4 3.2-4.8 g/dL Assessment/Plan Assessment/Plan Assessment and plan Acute right leg cellulitis SIRS Right leg pain, swelling, tenderness likely due to acute right leg cellulitis Leukocytosis likely due to acute right leg cellulitis Rule out DVT History of substance abuse marijuana Smoker Doppler study of the lower extremity negative for DVT Plan Pending CT scan of the right lower extremity Ordered Unasyn and vancomycin as per pharmacy protocol Ordered pain medicine Ordered IV normal saline Ordered blood culture and wound culture Ordered UDS Ordered urinalysis Goals of care, Code status ; discussed with >15 minutes PUD prophylaxis: Pantoprazole DVT prophylaxis: Lovenox Plan discussed with Dr. Castro , nursing staff, Total time spent on patient evaluation, chart review, assessment and plan, discussion discussion >35 minutes Plan discussed with: Patient, Other (GIRLFRIEND, RN) Date of Service: December 21, 2024 Billing Provider: TIANNA CASTRO MD Common Visit Codes: 35842-QFLUGPR INP/OBS CARE (HIGH) Secondary Visit Codes: 21901-PROMNUPZ CARE PLAN 30 MINUTES VIRGILIO RODRIGUEZ RESIDENT December 21, 2024 23:43
[2024-12-21] MEDS: VANCOMYCIN 1GM/250ML KIT 250 ML IV ONE (23:45)
[2024-12-21] MEDS ORDERED: AMPICILLIN & SULBACTAM SODIUM 3 GM in SODIUM CHL 0.9% 100 ML IV SCH (23:45)
[2024-12-21] MEDS ORDERED: VANCOMYCIN PER PHARMACY 0 MG IV SCH (23:45)
[2024-12-21] MEDS ORDERED: DOCUSATE SOD 100 MG CAP PO PRN (23:45)
[2024-12-22] MEDS: PANTOPRAZOLE 40 MG TAB PO ONE
[2024-12-22 00:24] LABS: Band Neutrophils % (manual) 2; Lymphocytes % (manual) 4 (10.0-50.0); Monocytes % (manual) 9 (0-12); Platelet Estimate Adequate
[2024-12-22 00:27] LABS: CRP High Sensitivity > 20 mg/dL (<1.0)
--- NOTE | 2024-12-22 01:40 | DVH ---
CHEST RADIOGRAPH Indication: PNA Technique: Single frontal view of the chest was obtained COMPARISON: CHEST PORTABLE on DOS: 02/09/22 FINDINGS: Lines and Tubes: None Lungs: Clear Pleura: No effusion. No pneumothorax. Cardiomediastinal contours: Unremarkable IMPRESSION: No abnormality demonstrated.
--- NOTE | 2024-12-22 04:42 | DVH ---
CLINICAL INDICATION: LEG WOUND PAIN REDNESS SWELLING TECHNIQUE: CT of the right lower extremity was performed with 100 mL Omnipaque 300 intravenous contr ast. Sagittal and coronal reformatted images are provided. COMPARISON: None CT Dose: CTDI volume is 11.1 mGy. Dose-length product is 1224.4 mGy*cm FINDINGS: No fracture or dislocation. Joint spaces are maintained. No cortical erosion or destruction . Soft tissue swelling in the anterior and lateral right lower extremity from about the knee to ankl e joint. No fluid collection. IMPRESSION: 1. Soft tissue swelling which may reflect cellulitis. No fluid collection. 2. No cortical destruction to suggest osteomyelitis. All CT scans at this medical facility are performed using dose modulation techniques as appropriate t o a performed exam including the following: Automated exposure control was utilized; adjustment of th e MA and/or KV according to patient size; and use of iterative reconstruction technique.
[2024-12-22 05:01] LABS: Basophils # (auto) 0.2 10 ^3/uL (0-0.2); Basophils % (auto) 0.8 % (0.0-2.0); Eosinophils # (auto) 0 10 ^3/uL (0-0.8); Eosinophils % (auto) 0.1 % (0.0-7.0); Hematocrit 46.1 % (41.0-53.0); Hemoglobin 15.8 g/dL (13.5-17.5); Lymphocytes # (auto) 0.6 10 ^3/uL (0.4-5.4); Lymphocytes % (auto) 2.8 % (10.0-50.0); Mean Corpuscular Hemoglobin 31.2 pg (28.0-32.0); Mean Corpuscular Hgb Conc. 34.2 g/dL (32.0-36.0); Mean Corpuscular Volume 91.2 fL (80.0-100.0); Monocytes # (auto) 1.2 10 ^3/uL (0-1.3); Monocytes % (auto) 5.8 % (0.0-12.0); Neutrophils # (auto) 19.2 10 ^3/uL (1.6-8.6); Neutrophils % (auto) 90.5 % (37.0-80.0); Platelet Count (auto) 160 10^3/uL (140-450); Red Blood Cells 5.05 10^6/uL (4.5-5.90); Red Cell Distribution Width 13.7 % (11.8-14.3); White Blood Cell 21.2 10^3/uL (4.4-10.8)
[2024-12-22] MEDS: HYDROcodone-ACET 5/325MG TAB PO ONE (05:20)
[2024-12-22 05:21] LABS: Alanine Aminotransferase 28 U/L (7-40); Albumin 4.5 g/dL (3.2-4.8); Anion Gap 9 (5-15); Aspartate Aminotransferase 26 U/L (13-40); BUN/Creatinine Ratio 16.9 (10.0-20.0); Bilirubin, Total 0.7 mg/dL (0.2-1.0); Blood Urea Nitrogen 15 mg/dL (9-23); Calcium 9.7 mg/dL (8.7-10.4); Carbon Dioxide 26 mmol/L (20-31); Chloride 102 mmol/L (98-107); Potassium 3.6 mmol/L (3.5-5.1); Sodium 137 mmol/L (136-145); Total Protein 7.2 g/dL (5.7-8.2)
[2024-12-22] MEDS: VANCOMYCIN 1GM/200ML PM 250 ML IV ONE (05:25)
[2024-12-22 05:31] LABS: Alkaline Phosphatase 120 U/L (46-116); Glucose 133 mg/dL (74-106)
[2024-12-22] MEDS: SODIUM CHLORIDE 0.9% 1,000 ML IV ONE ×4 (05:31→10:13)
[2024-12-22] MEDS: IOHEXOL 300 MG/ML 100ML BOTTLE IJ ONE (05:40)
[2024-12-22] MEDS: PANTOPRAZOLE 40 MG TAB PO SCH (05:43)
[2024-12-22] MEDS: SODIUM CHLOR 0.9% PF (SALINE LOCK) 10ML VIAL/SYR IV SCH (06:20)
[2024-12-22] MEDS: PIPERACILLIN-TAZOB 3.375GM 100 ML IV ONE (07:40)
[2024-12-22] MEDS: AMPICILLIN & SULBACTAM SODIUM 3 GM in SODIUM CHL 0.9% 100 ML IV SCH (10:13)
[2024-12-22] MEDS: HYDROcodone-ACET 5/325MG TAB PO PRN (10:25)
[2024-12-22] MEDS: ENOXAPARIN SOD 40 MG/0.4 ML SYRINGE SC SCH (10:25)
[2024-12-22 10:27] VITALS: PULSE 74; RESP 13; O2SAT 99
--- NOTE | 2024-12-22 11:02 | DVHPNRES ---
Progress Note Date Seen: December 22, 2024 Resident Creating Document: ILIR BEARD RESIDENT Has the PT tested + for MRSA If YES, has PT been informed?: No Medical Necessity Reason Pt with a Central, PICC or Fol: No Subjective Review of Systems Moody Bee is a 34-year-old male with no significant past medical history who presents to the Emergency Department with worsening pain and swelling in the right lower leg over the past two days. The patient reports sustaining a traumatic injury to the leg approximately four days ago after contact with a trailer truck. Initially, he was asymptomatic, but over the last 48 hours, he has experienced progressive swelling, erythema, warmth, and severe pain, along with limited range of motion at the Rt knee and ankle. He was evaluated in the ED two days ago and discharged with a prescription for Keflex and naproxen; however, his symptoms have since worsened, prompting a return visit. He denies systemic symptoms such as fever, nausea, vomiting, or diarrhea. On arrival, laboratory studies revealed elevated WBC, ESR, and lactic acid levels. A venous Doppler of the right lower extremity was negative for DVT. The patient admits to occasional marijuana use, smokes less than half a pack of cigarettes daily, and is sexually active with one lifetime partner. He reports a previously negative STD panel. Patient reported that he received tetanus shot 6 months back due to nail injury, not administered at this visit. ROS: The patient was seen and examined at the bedside. He is alert and oriented but in significant distress due to pain, swelling, redness, and limited mobility of the right lower leg.We will closely monitor for changes in rt leg like rapidly spreading, increasing swelling and has been started on IV antibiotics, including Unasyn and vancomycin. Patient reports: No new complaints Objective vital signs Vital Sign Date Time Temp Pulse Resp B/P (MAP) Pulse Ox O2 Delivery O2 Flow Rate FiO2 12/22/24 10:27 98.4 74 13 137/86 (103) 99 98.4 12/22/24 10:27 Room Air* 0 21 Total Intake and Output 12/21/24 12/21/24 12/22/24 15:00 23:00 07:00 Intake Total 2250 ml Balance 2250 ml medications Current Medications Medications Dose Ordered Sig/Darvin Route Start Time Stop Time Status Last Admin Dose Admin Sodium Chloride 10 ml Q8HR IV 12/22/24 06:00 12/22/24 06:20 10 ML Acetaminophen/ Hydrocodone Bitart 1 tab Q4HP PRN PO 12/21/24 23:45 12/22/24 10:25 1 TAB Docusate Sodium 100 mg BIDPRN PRN PO 12/21/24 23:45 Enoxaparin Sodium 40 mg DAILY SC 12/22/24 10:00 12/22/24 10:25 40 MG Acetaminophen 650 mg Q6HP PRN PO 12/21/24 23:45 Vancomycin HCl 0 ml @ 0 mls/hr UD IV 12/21/24 23:45 UNV Pantoprazole Sodium 40 mg DAILY@0600 PO 12/22/24 06:00 12/22/24 05:43 40 MG Ampicillin Sodium/ Sulbactam Sodium 3 gm/Sodium Chloride 100 ml @ 100 mls/hr Q6H IV 12/22/24 10:15 12/22/24 10:13 100 MLS/HR Examination Pt is lying on bed General Appearance: Alert, Oriented X3, Cooperative, moderate distress due to pain HEENT: Atraumatic, Mucous membranes moist/pink Respiratory: Clear to auscultation, Normal air movement, No added sounds Cardiovascular: Regular rate, Normal S1, Normal S2, No murmurs Abdominal: Active bowel sounds, Soft, no distention, no tenderness Extremities: All 3 extremities are normal except RLL which is warm, redness, tender and swollen spreading b/w ankle & knee joint Skin: As described above Neuro: Normal speech, sensorimotor deficits none Psych/Mental Status: Mental status NL, Mood NL Nurse was there as landscape supervisor during examination laboratory and microbiology Laboratory Tests 12/22/24 04:45 Test 12/22/24 04:45 Range/Units Serum Glucose 133 H 74-106 mg/dL Labs and/or images reviewed: Labs reviewed by me, Image(s) reviewed by me Problem List/Assessment/Plan Problem List/Assessment/Plan # SIRS/ Sepsis likely from below # RLL cellulitis, likely ruled out abscess # Ruled out DVT- lower extremity venous scan negative for DVT - admit med surge for close monitoring of leg - CT showed findings suggestive of cellulitis but no abscess - blood cultures and monitor lab - start Unasyn and vancomycin for broad coverage - pain management as needed - No need of tetanus toxoid vaccine as patient is taken in 6 months back # marijuana abuse disorder /dependence- counseled regarding cessation for 22 minutes including 17 minutes for tobacco use cessation # tobacco abuse disorder- declined nicotine patch; counseled regarding cessation for 17 minutes specifically for tobacco use cessation Protonix Lovenox Regular diet Goals of care discussed with the patient for 20 minutes: Full code status Case discussed with Dr. Huerta, patient and nurse Plan discussed with: Patient, Other (Nurse) Addendum Addendum Addendum I was physically present for the jean-baptiste portions of the service provided to patient by THE RESIDENT. I have reviewed the documentation, discussed the case with resident and agree with the resident's documentation except as noted. Also the patient's clinical case was discussed with the patient's nurse. This medical document was created using an electronic medical record system with computerized dictation system. Although this document has been carefully reviewed, there might still be some phonetic and typographical errors. These areas are purely typographical due to imperfections of the software programs, and do not reflect any compromise in the patient's medical care. Late signature. Date of Service: December 22, 2024 Billing Provider: MITZY HUERTA MD Common Visit Codes: [id number] INP/OBS CARE(HIGH) Secondary Visit Codes: [id number] CHNG SMOKING >10MIN (22 minutes for marijuana and tobacco use cessation; 17 minutes specifically for tobacco use cessation), [id number] CARE PLAN 30 MINUTES (20 minutes) ILIR BEARD RESIDENT December 22, 2024 11:02 MITZY HUERTA MD December 23, 2024 06:38
[2024-12-22 11:22] VITALS: BP 138/86; PULSE 78; RESP 20; TEMP 99.4; O2SAT 98
[2024-12-22 11:26] VITALS: BP 138/86; PULSE 78; RESP 20; TEMP 99.4; O2SAT 98
[2024-12-22 13:08] VITALS: BP 142/82; PULSE 80; RESP 18; TEMP 98.2; O2SAT 97
[2024-12-22] MEDS: VANCOMYCIN 1GM/200ML PM 200 ML IV SCH (15:49)
[2024-12-22 17:17] VITALS: BP 144/78; PULSE 85; RESP 18; TEMP 99.4; O2SAT 98
[2024-12-22] MEDS: ACETAMINOPHEN 325 MG TAB PO PRN (18:52)
[2024-12-22 21:00] VITALS: BP 135/84; PULSE 87; RESP 18; TEMP 100.2; O2SAT 99
[2024-12-23] VITALS (8 sets, daily range): BP systolic 132–146; BP diastolic 78–95; PULSE 74–88; RESP 16–19; TEMP 99–100.6; O2SAT 96–100
[2024-12-23 04:55] LABS: Basophils # (auto) 0.1 10 ^3/uL (0-0.2); Basophils % (auto) 0.4 % (0.0-2.0); Eosinophils # (auto) 0 10 ^3/uL (0-0.8); Eosinophils % (auto) 0.2 % (0.0-7.0); Hematocrit 38.4 % (41.0-53.0); Hemoglobin 13.4 g/dL (13.5-17.5); Lymphocytes # (auto) 0.6 10 ^3/uL (0.4-5.4); Lymphocytes % (auto) 3.8 % (10.0-50.0); Mean Corpuscular Hemoglobin 31.8 pg (28.0-32.0); Mean Corpuscular Hgb Conc. 34.8 g/dL (32.0-36.0); Mean Corpuscular Volume 91.3 fL (80.0-100.0); Monocytes # (auto) 1.3 10 ^3/uL (0-1.3); Monocytes % (auto) 7.7 % (0.0-12.0); Neutrophils # (auto) 14.5 10 ^3/uL (1.6-8.6); Neutrophils % (auto) 87.9 % (37.0-80.0); Platelet Count (auto) 176 10^3/uL (140-450); Red Blood Cells 4.21 10^6/uL (4.5-5.90); Red Cell Distribution Width 13.6 % (11.8-14.3); White Blood Cell 16.5 10^3/uL (4.4-10.8)
[2024-12-23 05:03] LABS: Sodium 143 mmol/L (136-145)
[2024-12-23 05:04] LABS: Anion Gap 6 (5-15); Carbon Dioxide 28 mmol/L (20-31)
[2024-12-23 05:09] LABS: BUN/Creatinine Ratio 15.9 (10.0-20.0); Blood Urea Nitrogen 13 mg/dL (9-23); Chloride 109 mmol/L (98-107); Glucose 142 mg/dL (74-106)
[2024-12-23 08:25] LABS: Urine Bacteria FEW /hpf (None Seen); Urine Blood Negative /uL (Negative); Urine Clarity Clear (Clear); Urine Color Yellow (Yellow); Urine Mucus FEW (None Seen); Urine Protein, UAD 1+ (Negative); Urine Specific Gravity 1.029 (1.001-1.035); Urine Squamous Epithelial Cell FEW /hpf (<5); Urine Urobilinogen 8 mg/dL (Negative); Urine WBC 2 /HPF (0-3); Urine pH 6.5 (5.0-9.0)
[2024-12-23 08:27] LABS: Amphetamine Screen, Urine Neg (NEGATIVE)
[2024-12-23 08:28] LABS: Opiate Scree,Urine Neg (NEGATIVE)
[2024-12-23 08:32] LABS: Barbiturate Scree,Urine Neg (NEGATIVE); Benzodiazephine Screen, Urine Neg (NEGATIVE); Cannabinoid Screen, Urine Pos (NEGATIVE); Cocaine Screen, Urine Neg (NEGATIVE); Phencyclidine Screen, Urine Neg (NEGATIVE)
--- NOTE | 2024-12-23 14:00 | DVHPNRES ---
Progress Note Date Seen: December 23, 2024 Resident Creating Document: ILIR BEARD RESIDENT Has the PT tested + for MRSA If YES, has PT been informed?: No Medical Necessity Reason Pt with a Central, PICC or Fol: No Subjective Review of Systems Patient seen examined at the bedside. Patient reported improvement in his pain and range of movements since admission. Overnight events reviewed patient running fevers. Patient reports: Feels better Objective vital signs Vital Sign Date Time Temp Pulse Resp B/P (MAP) Pulse Ox O2 Delivery O2 Flow Rate FiO2 12/23/24 12:35 100.1 82 16 139/86 (103) 99 100.1 12/23/24 08:25 Room Air* 0 21 Total Intake and Output 12/22/24 12/22/24 12/23/24 15:00 23:00 07:00 Intake Total 325 ml 740 ml 750 ml Output Total 300 ml Balance 325 ml 740 ml 450 ml medications Current Medications Medications Dose Ordered Sig/Darvin Route Start Time Stop Time Status Last Admin Dose Admin Sodium Chloride 10 ml Q8HR IV 12/22/24 06:00 12/23/24 13:13 10 ML Acetaminophen/ Hydrocodone Bitart 1 tab Q4HP PRN PO 12/21/24 23:45 12/23/24 05:23 1 TAB Docusate Sodium 100 mg BIDPRN PRN PO 12/21/24 23:45 Enoxaparin Sodium 40 mg DAILY SC 12/22/24 10:00 12/23/24 10:16 40 MG Acetaminophen 650 mg Q6HP PRN PO 12/21/24 23:45 12/22/24 18:52 650 MG Vancomycin HCl 0 ml @ 0 mls/hr UD IV 12/21/24 23:45 Pantoprazole Sodium 40 mg DAILY@0600 PO 12/22/24 06:00 12/23/24 05:19 40 MG Ampicillin Sodium/ Sulbactam Sodium 3 gm/Sodium Chloride 100 ml @ 100 mls/hr Q6H IV 12/22/24 10:15 12/23/24 10:15 100 MLS/HR Vancomycin HCl 200 ml @ 200 mls/hr Q8H IV 12/22/24 13:00 12/23/24 13:09 200 MLS/HR Examination Pt is lying on bed General Appearance: Alert, Oriented X3, Cooperative, moderate distress due to pain HEENT: Atraumatic, Mucous membranes moist/pink Respiratory: Clear to auscultation, Normal air movement, No added sounds Cardiovascular: Regular rate, Normal S1, Normal S2, No murmurs Abdominal: Active bowel sounds, Soft, no distention, no tenderness Extremities: All 3 extremities are normal except RLL which is warm, redness, tender and swollen spreading b/w ankle & knee joint improved compared to yesterday Skin: As described above Neuro: Normal speech, sensorimotor deficits none Psych/Mental Status: Mental status NL, Mood NL Nurse was there as wastewater technician during examination laboratory and microbiology Laboratory Tests 12/23/24 04:45 Test 12/23/24 04:45 Range/Units Serum Glucose 142 H 74-106 mg/dL Microbiology Date/Time Source Procedure Growth Status 12/23/24 04:00 Nose MRSA Screen - Final Complete 12/22/24 00:18 Blood Blood Culture - Preliminary NO GROWTH AFTER 24 HOURS OF INCUBATION. Resulted Labs and/or images reviewed: Labs reviewed by me, Image(s) reviewed by me Problem List/Assessment/Plan Problem List/Assessment/Plan # Sepsis due to below # RLL cellulitis, ruled out abscess # Ruled out DVT- lower extremity venous scan negative for DVT - CT showed findings suggestive of cellulitis but no abscess - blood cultures and monitor lab - start Unasyn and vancomycin for broad coverage - pain management as needed - No need of tetanus toxoid vaccine as patient is taken in 6 months back - continue monitoring vitals if fever recurs give Tylenol. # marijuana use disorder /dependence- counseled regarding cessation # tobacco use disorder- declined nicotine patch; counseled on cessation Protonix Lovenox Regular diet Case discussed with Dr. Huerta, patient and nurse Plan discussed with: Patient, Other Addendum Addendum Addendum I was physically present for the jean-baptiste portions of the service provided to patient by THE RESIDENT. I have reviewed the documentation, discussed the case with resident and agree with the resident's documentation except as noted. Also the patient's clinical case was discussed with the patient's nurse. This medical document was created using an electronic medical record system with computerized dictation system. Although this document has been carefully reviewed, there might still be some phonetic and typographical errors. These areas are purely typographical due to imperfections of the software programs, and do not reflect any compromise in the patient's medical care. Late signature. Date of Service: December 23, 2024 Billing Provider: MITZY HUERTA MD Common Visit Codes: [id number] INP/OBS CARE(HIGH) ILIR BEARD RESIDENT December 23, 2024 14:00 MITZY HUERTA MD Dec 24, 2024 11:22
[2024-12-24] VITALS (8 sets, daily range): BP systolic 135–150; BP diastolic 85–96; PULSE 66–93; RESP 16–18; TEMP 98.7–99.9; O2SAT 97–100
[2024-12-24 06:31] LABS: Basophils # (auto) 0 10 ^3/uL (0-0.2); Basophils % (auto) 0.3 % (0.0-2.0); Eosinophils # (auto) 0.1 10 ^3/uL (0-0.8); Eosinophils % (auto) 0.5 % (0.0-7.0); Hematocrit 37.6 % (41.0-53.0); Lymphocytes % (auto) 7.8 % (10.0-50.0); Mean Corpuscular Hemoglobin 31.5 pg (28.0-32.0); Mean Corpuscular Hgb Conc. 34.7 g/dL (32.0-36.0); Mean Corpuscular Volume 90.8 fL (80.0-100.0); Monocytes # (auto) 1.4 10 ^3/uL (0-1.3); Monocytes % (auto) 11.3 % (0.0-12.0); Neutrophils % (auto) 80.1 % (37.0-80.0); Nucleated Red Blood Cells % 0.1 %; Platelet Count (auto) 186 10^3/uL (140-450); Red Blood Cells 4.14 10^6/uL (4.5-5.90); White Blood Cell 12.4 10^3/uL (4.4-10.8)
[2024-12-24 06:41] LABS: Calcium 9.2 mg/dL (8.7-10.4); Potassium 3.8 mmol/L (3.5-5.1); Sodium 142 mmol/L (136-145)
[2024-12-24 06:43] LABS: Anion Gap 7 (5-15); Carbon Dioxide 28 mmol/L (20-31)
[2024-12-24 06:48] LABS: BUN/Creatinine Ratio 14.5 (10.0-20.0); Blood Urea Nitrogen 11 mg/dL (9-23); Chloride 107 mmol/L (98-107); Glucose 114 mg/dL (74-106)
--- NOTE | 2024-12-24 19:16 | DVHPNRES ---
Progress Note Date Seen: Dec 24, 2024 Resident Creating Document: MARY CARMEN CHIN RESIDENT Has the PT tested + for MRSA If YES, has PT been informed?: No Medical Necessity Reason Pt with a Central, PICC or Fol: No Subjective Review of Systems Patient seen and examined at bedside Continued to have fever Continued to have right lower extremity erythema, tenderness Erythema is improving compared to yesterday, surgical marking over the site of erythema. Regular bowel and bladder No any other new complaints Objective vital signs Vital Sign Date Time Temp Pulse Resp B/P (MAP) Pulse Ox O2 Delivery O2 Flow Rate FiO2 12/24/24 17:00 98.7 73 18 150/89 (109) 99 98.7 12/24/24 08:15 Room Air* 0 21 Total Intake and Output 12/23/24 12/23/24 12/24/24 15:00 23:00 07:00 Intake Total 300 ml 700 ml 100 ml Output Total 1200 ml 1000 ml Balance 300 ml -500 ml -900 ml medications Current Medications Medications Dose Ordered Sig/Darvin Route Start Time Stop Time Status Last Admin Dose Admin Sodium Chloride 10 ml Q8HR IV 12/22/24 06:00 12/24/24 14:04 10 ML Acetaminophen/ Hydrocodone Bitart 1 tab Q4HP PRN PO 12/21/24 23:45 12/24/24 06:46 1 TAB Docusate Sodium 100 mg BIDPRN PRN PO 12/21/24 23:45 Enoxaparin Sodium 40 mg DAILY SC 12/22/24 10:00 12/24/24 09:52 40 MG Acetaminophen 650 mg Q6HP PRN PO 12/21/24 23:45 12/23/24 16:09 650 MG Vancomycin HCl 0 ml @ 0 mls/hr UD IV 12/21/24 23:45 Pantoprazole Sodium 40 mg DAILY@0600 PO 12/22/24 06:00 12/24/24 05:30 40 MG Ampicillin Sodium/ Sulbactam Sodium 3 gm/Sodium Chloride 100 ml @ 100 mls/hr Q6H IV 12/22/24 10:15 12/24/24 16:07 100 MLS/HR Vancomycin HCl 250 ml @ 200 mls/hr Q8H IV 12/24/24 21:00 Examination General Appearance: Alert, Oriented X3, Cooperative, moderate distress due to pain HEENT: Atraumatic, Mucous membranes moist/pink Respiratory: Clear to auscultation, Normal air movement, No added sounds Cardiovascular: Regular rate, Normal S1, Normal S2, No murmurs Abdominal: Active bowel sounds, Soft, no distention, no tenderness Extremities: All 3 extremities are normal except RLL erythema, tenderness over lower extremity. Erythema improved compared to yesterday Skin: As described above Neuro: Normal speech, sensorimotor deficits none Psych/Mental Status: Mental status NL, Mood NL Nurse was there as service plumber during examination laboratory and microbiology Laboratory Tests 12/24/24 05:40 Test 12/24/24 05:40 Range/Units Serum Glucose 114 H 74-106 mg/dL Microbiology Date/Time Source Procedure Growth Status 12/23/24 04:00 Nose MRSA Screen - Final Complete 12/22/24 00:18 Blood Blood Culture - Preliminary NO GROWTH AFTER 48 HOURS OF INCUBATION. Resulted Labs and/or images reviewed: Labs reviewed by me, Image(s) reviewed by me Problem List/Assessment/Plan Problem List/Assessment/Plan # Sepsis due to below # RLL cellulitis, ruled out abscess # Ruled out DVT- lower extremity venous scan negative for DVT - CT showed findings suggestive of cellulitis but no abscess - 1st blood cultures with no growth; repeat blood culture as the patient continues to have fever - on Unasyn and vancomycin for broad coverage - pain management as needed - No need of tetanus toxoid vaccine as patient is taken in 6 months back - continue monitoring vitals if fever recurs give Tylenol. # marijuana use disorder /dependence- counseled regarding cessation # tobacco use disorder- declined nicotine patch; counseled on cessation Protonix Lovenox Regular diet Full code status Case discussed with Dr. Huerta, patient and nurse Plan discussed with: Patient, Other (RN) Dietary Evaluation Review Recommendations by RD: Dietary education by RD, Protein Supplementation Comments: 1) Initiate Diogenes @ 1 pk bid 2) Initiate Ensure Enlive bid. Encourage optimal PO intake 3) Encourage tobacco cessation 4) Refer to outpatient RD for weight management 5) Continue to monitor I&O, labs, and skin integrity Expected Outcomes/Goals: 1) appetite and labs to improve 2) wound to improve 3) f/u in 3-5 days Addendum Addendum Addendum I was physically present for the jean-baptiste portions of the service provided to patient by THE RESIDENT. I have reviewed the documentation, discussed the case with resident and agree with the resident's documentation except as noted. Also the patient's clinical case was discussed with the patient's nurse. This medical document was created using an electronic medical record system with computerized dictation system. Although this document has been carefully reviewed, there might still be some phonetic and typographical errors. These areas are purely typographical due to imperfections of the software programs, and do not reflect any compromise in the patient's medical care. Late signature. Date of Service: Dec 24, 2024 Billing Provider: MITZY HUERTA MD Common Visit Codes: [id number] INP/OBS CARE(HIGH) MARY CARMEN CHIN RESIDENT Dec 24, 2024 19:16 MITZY HUERTA MD Dec 25, 2024 05:46
[2024-12-24] MEDS: VANCOMYCIN 1.25GM/250ML 250 ML IV SCH (21:07)
[2024-12-25] VITALS (7 sets, daily range): BP systolic 123–167; BP diastolic 60–108; PULSE 53–65; RESP 17–18; TEMP 98–99.6; O2SAT 98–100
[2024-12-25 07:59] LABS: Basophils # (auto) 0 10 ^3/uL (0-0.2); Basophils % (auto) 0.5 % (0.0-2.0); Eosinophils # (auto) 0.1 10 ^3/uL (0-0.8); Hematocrit 37.9 % (41.0-53.0); Hemoglobin 13.1 g/dL (13.5-17.5); Lymphocytes # (auto) 1.3 10 ^3/uL (0.4-5.4); Lymphocytes % (auto) 13.7 % (10.0-50.0); Mean Corpuscular Hemoglobin 31.4 pg (28.0-32.0); Mean Corpuscular Hgb Conc. 34.6 g/dL (32.0-36.0); Mean Corpuscular Volume 90.7 fL (80.0-100.0); Monocytes # (auto) 1.2 10 ^3/uL (0-1.3); Monocytes % (auto) 12.5 % (0.0-12.0); Neutrophils # (auto) 6.9 10 ^3/uL (1.6-8.6); Neutrophils % (auto) 72.3 % (37.0-80.0); Nucleated Red Blood Cells % 0.1 %; Platelet Count (auto) 220 10^3/uL (140-450); Red Blood Cells 4.18 10^6/uL (4.5-5.90); White Blood Cell 9.5 10^3/uL (4.4-10.8)
[2024-12-25 08:10] LABS: Calcium 9.9 mg/dL (8.7-10.4); Chloride 105 mmol/L (98-107); Potassium 4.1 mmol/L (3.5-5.1); Sodium 140 mmol/L (136-145)
[2024-12-25 08:11] LABS: Anion Gap 6 (5-15); Carbon Dioxide 29 mmol/L (20-31)
[2024-12-25 08:17] LABS: BUN/Creatinine Ratio 11.8 (10.0-20.0); Blood Urea Nitrogen 9 mg/dL (9-23); Glucose 116 mg/dL (74-106)
--- NOTE | 2024-12-25 15:01 | DVHPNRES ---
Progress Note Date Seen: Dec 25, 2024 Resident Creating Document: TERESSA PATEL RESIDENT Has the PT tested + for MRSA If YES, has PT been informed?: No Medical Necessity Reason Pt with a Central, PICC or Fol: No Subjective Review of Systems Patient is 34 years old male with no significant past medical history came with a complaint of right leg pain. As per patient he scratches right leg couple of days before when he was jumping office trailer. Got a scratch. He came with a complain to the ER 2 days before and he was discharged with Keflex and naproxen. But his right leg swelling as got worse, is getting more swollen, red and tender and reddish. Pain was sharp 10/10, increased with movement. Patient denied any chest pain, shortness of breath, dysuria, diarrhea palpitation or fever. Initial lab workup revealed leukocytosis with WBC 19.6, ESR 60. Lactic acid 1.8. Right lower extremity Venous Doppler negative for DVT Social history:Lives with parents, smokes cigarettes, does marijuana, denies alcoholism. Patient seen and examined in the bedside. Reports pain in right lower extremity. Lower extremity has localized swelling, erythema, indurated. Objective vital signs Vital Sign Date Time Temp Pulse Resp B/P (MAP) Pulse Ox O2 Delivery O2 Flow Rate FiO2 12/25/24 13:00 98.1 53 17 161/97 (118) 100 98.1 12/24/24 20:00 Room Air* 0 21 Total Intake and Output 12/24/24 12/24/24 12/25/24 15:00 23:00 07:00 Intake Total 100 ml 950 ml 600 ml Balance 100 ml 950 ml 600 ml medications Current Medications Medications Dose Ordered Sig/Darvin Route Start Time Stop Time Status Last Admin Dose Admin Sodium Chloride 10 ml Q8HR IV 12/22/24 06:00 12/25/24 06:00 10 ML Acetaminophen/ Hydrocodone Bitart 1 tab Q4HP PRN PO 12/21/24 23:45 12/25/24 08:44 1 TAB Docusate Sodium 100 mg BIDPRN PRN PO 12/21/24 23:45 Enoxaparin Sodium 40 mg DAILY SC 12/22/24 10:00 12/24/24 09:52 40 MG Acetaminophen 650 mg Q6HP PRN PO 12/21/24 23:45 12/23/24 16:09 650 MG Vancomycin HCl 0 ml @ 0 mls/hr UD IV 12/21/24 23:45 Pantoprazole Sodium 40 mg DAILY@0600 PO 12/22/24 06:00 12/24/24 05:30 40 MG Ampicillin Sodium/ Sulbactam Sodium 3 gm/Sodium Chloride 100 ml @ 100 mls/hr Q6H IV 12/22/24 10:15 12/25/24 10:23 100 MLS/HR Vancomycin HCl 250 ml @ 200 mls/hr Q8H IV 12/24/24 21:00 12/25/24 12:41 200 MLS/HR Examination Patient lying in bed, in no acute distress General: Well-built, afebrile, palor, mucosae are moist Cardiovascular: Regular S1 and S2. No murmurs, gallops or rubs. No JVD elevation. No pedal edema Respiratory: Normal B/L air entry on room air. Clear lung sounds on auscultation Abdomen: Soft, nontender, nondistended, normoactive bowel sounds, no rebound tenderness, no organomegaly, no masses Genitourinary: Deferred MSK/skin: Mobilizes 4 limbs. Skin is dry and warm. Right lower extremity has erythema, swollen, induration below the knee joint. Neurological: No motor, no sensitive deficits, normal speech. Pupils are isocoric and reactive. Psych/Mental Status: A/Ox3 laboratory and microbiology Laboratory Tests 12/25/24 07:16 Test 12/25/24 07:16 Range/Units Serum Glucose 116 H 74-106 mg/dL Microbiology Date/Time Source Procedure Growth Status 12/24/24 12:09 Blood Blood Culture - Preliminary NO GROWTH AFTER 24 HOURS OF INCUBATION. Resulted 12/23/24 04:00 Nose MRSA Screen - Final Complete Labs and/or images reviewed: Labs reviewed by me, Image(s) reviewed by me Problem List/Assessment/Plan Problem List/Assessment/Plan # Sepsis due to right lower extremity cellulitis # RLL cellulitis, ruled out abscess # Ruled out DVT- lower extremity venous scan negative for DVT - CT showed findings suggestive of cellulitis but no abscess - 1st blood cultures with no growth; repeat blood culture as the patient continues to have fever - repeated blood culture 12/25 - on Unasyn and vancomycin for broad coverage - consulted wound care -follow up with the ESR CRP - pain management as needed - No need of tetanus toxoid vaccine as patient is taken in 6 months back - continue monitoring vitals if fever recurs give Tylenol. # marijuana use disorder /dependence- counseled regarding cessation # tobacco use disorder- declined nicotine patch; counseled on cessation Protonix Lovenox Regular diet Full code status Case discussed with Dr. Syed, patient and nurse Plan discussed with: Patient My Orders My Orders Orders - TERESSA PATEL Procedure Category Date Status Time * Wound Consult CONS 12/25/24 Transmitted Cleanse Wound With Ns JAMES 12/25/24 In Process 12:11 Blood Culture ANJUM 12/25/24 In Process 12:11 Dietary Evaluation Review Recommendations by RD: Dietary education by RD, Protein Supplementation Comments: 1) Initiate Diogenes @ 1 pk bid 2) Initiate Ensure Enlive bid. Encourage optimal PO intake 3) Encourage tobacco cessation 4) Refer to outpatient RD for weight management 5) Continue to monitor I&O, labs, and skin integrity Expected Outcomes/Goals: 1) appetite and labs to improve 2) wound to improve 3) f/u in 3-5 days TERESSA PATEL Dec 25, 2024 15:00
[2024-12-25] MEDS ORDERED: MORPHINE SULFATE INJ 2 MG/ml SYRG IV PRN (15:15)
[2024-12-25] MEDS: MORPHINE SULFATE 4 MG/ML SYR/VIAL IV PRN (16:19)
[2024-12-25 17:52] LABS: COVID19 ANTIGEN SOFIA FIA NEGATIVE (NEGATIVE); Rapid Influenza A Negative (Negative); Rapid Influenza B Negative (Negative)
[2024-12-25 20:14] LABS: Urine Bacteria None Seen /hpf (None Seen)
[2024-12-25 20:30] LABS: Urine Blood Negative /uL (Negative); Urine Clarity Clear (Clear); Urine Color Light-Yellow (Yellow); Urine Protein, UAD Negative (Negative); Urine Specific Gravity 1.011 (1.001-1.035); Urine Squamous Epithelial Cell FEW /hpf (<5); Urine Urobilinogen Normal (Negative); Urine WBC 2 /HPF (0-3)
[2024-12-26 01:00] VITALS: BP 159/76; PULSE 55; RESP 19; TEMP 98.6; O2SAT 99
[2024-12-26 05:00] VITALS: BP 160/86; PULSE 63; RESP 18; TEMP 98.5; O2SAT 99
[2024-12-26 06:58] LABS: Anion Gap 8 (5-15); Calcium 9.1 mg/dL (8.7-10.4); Carbon Dioxide 27 mmol/L (20-31); Chloride 104 mmol/L (98-107); Potassium 3.9 mmol/L (3.5-5.1); Sodium 139 mmol/L (136-145)
[2024-12-26 07:04] LABS: BUN/Creatinine Ratio 15.2 (10.0-20.0); Blood Urea Nitrogen 12 mg/dL (9-23); Glucose 104 mg/dL (74-106)
[2024-12-26 07:20] LABS: Hematocrit 40.1 % (41.0-53.0); Hemoglobin 13.9 g/dL (13.5-17.5); Mean Corpuscular Hemoglobin 31.6 pg (28.0-32.0); Mean Corpuscular Hgb Conc. 34.7 g/dL (32.0-36.0); Mean Corpuscular Volume 91.1 fL (80.0-100.0); Platelet Count (auto) 272 10^3/uL (140-450)
[2024-12-26 07:23] LABS: Basophils % (manual) 0 (0.0-2.0); Blast Cells 0; Eosinophils % (manual) 0 (0-7); Myelocytes % 0; Promyelocytes % 0; Reactive Lymphocytes 0
[2024-12-26 07:56] LABS: CRP High Sensitivity 8.62 mg/dL (<1.0)
[2024-12-26 08:09] LABS: Erythrocyte Sedimentation Rate 84 mm/hr (0-20)
[2024-12-26 08:11] LABS: Band Neutrophils % (manual) 8; Lymphocytes % (manual) 22 (10.0-50.0); Metamyelocytes % 1; Monocytes % (manual) 5 (0-12); Platelet Estimate Adequate
[2024-12-26 09:00] VITALS: BP 146/89; PULSE 56; RESP 17; TEMP 98.2; O2SAT 99
[2024-12-26] MEDS: SODIUM CHLORIDE 0.9% 500 ML IV ONE (11:42)
[2024-12-26] MEDS: SODIUM CHLORIDE 0.9% 1,000 ML IV SCH (12:47)
[2024-12-26 13:00] VITALS: BP 163/99; PULSE 58; RESP 16; TEMP 98.2; O2SAT 99
[2024-12-26 14:51] LABS: Hemoglobin 14.3 g/dL (13.5-17.5); Mean Corpuscular Hemoglobin 31.7 pg (28.0-32.0); Mean Corpuscular Hgb Conc. 34.9 g/dL (32.0-36.0); Platelet Count (auto) 292 10^3/uL (140-450); Red Blood Cells 4.51 10^6/uL (4.5-5.90); Red Cell Distribution Width 13.6 % (11.8-14.3)
[2024-12-26 14:58] LABS: Band Neutrophils % (manual) 0; Basophils % (manual) 0 (0.0-2.0); Blast Cells 0; Eosinophils % (manual) 0 (0-7); Metamyelocytes % 0; Myelocytes % 0; Promyelocytes % 0; Reactive Lymphocytes 0
[2024-12-26 16:35] LABS: Lymphocytes % (manual) 12 (10.0-50.0); Monocytes % (manual) 8 (0-12); Platelet Estimate Adequate; RBC Morphology Normal
[2024-12-26] MEDS ORDERED: BACDST PO (16:38)
--- NOTE | 2024-12-26 16:38 | DVHDSRES ---
Discharge Summary Date of Admission Resident Creating Document: TERESSA PATEL RESIDENT December 21, 2024 at 23:41 Date of Discharge: Dec 26, 2024 Labs/Diagnostic Data: Laboratory Results Test 12/26/24 14:34 12/26/24 06:06 12/25/24 19:30 12/25/24 17:00 White Blood Count 11.0 10^3/uL (4.4-10.8) Red Blood Count 4.51 10^6/uL (4.5-5.90) Hemoglobin 14.3 g/dL (13.5-17.5) Hematocrit 41.0 % (41.0-53.0) Mean Corpuscular Volume 91.0 fL (80.0-100.0) Mean Corpuscular Hemoglobin 31.7 pg (28.0-32.0) Mean Corpuscular Hemoglobin Concent 34.9 g/dL (32.0-36.0) Red Cell Distribution Width 13.6 % (11.8-14.3) Platelet Count 292 10^3/uL (140-450) Mean Platelet Volume 7.6 fL (6.9-10.8) Neutrophils (%) (Auto) % (37.0-80.0) Lymphocytes (%) (Auto) % (10.0-50.0) Monocytes (%) (Auto) % (0.0-12.0) Basophils (%) (Auto) % (0.0-2.0) Neutrophils # (Auto) 10 ^3/uL (1.6-8.6) Lymphocytes # (Auto) 10 ^3/uL (0.4-5.4) Monocytes # (Auto) 10 ^3/uL (0-1.3) Nucleated Red Blood Cells 1.0 % Erythrocyte Sedimentation Rate 84 mm/hr (0-20) Sodium Level 139 mmol/L (136-145) Potassium Level 3.9 mmol/L (3.5-5.1) Chloride Level 104 mmol/L (98-107) Carbon Dioxide Level 27 mmol/L (20-31) Anion Gap 8 (5-15) Blood Urea Nitrogen 12 mg/dL (9-23) Creatinine 0.79 mg/dL (0.700-1.30) Glomerular Filtration Rate Calc 121 mL/min (>90) BUN/Creatinine Ratio 15.2 (10.0-20.0) Serum Glucose 104 mg/dL (74-106) Calcium Level 9.1 mg/dL (8.7-10.4) C-Reactive Protein High Sensitivity 8.62 mg/dL (<1.0) Vancomycin Level Trough 11.8 ug/mL (5-10) Urine Color Light-yellow (Yellow) Urine Clarity Clear (Clear) Urine pH 7.0 (5.0-9.0) Urine Specific Parkin 1.011 (1.001-1.035) Urine Protein Negative (Negative) Urine Ketones Negative (Negative) Urine Blood Negative /uL (Negative) Urine Nitrite Negative (Negative) Urine Bilirubin Negative (Negative) Urine Urobilinogen Normal mg/dL (Negative) Urine Leukocyte Esterase Negative /uL (Negative) Urine RBC <1 /hpf (0 - 3) Urine Microscopic WBC 2 /HPF (0-3) Urine Squamous Epithelial Cells Few /hpf (<5) Urine Bacteria None seen /hpf (None Seen) Urine Glucose Normal mg/dL (Normal) Influenza Type A Antigen Negative (Negative) Influenza Type B Antigen Negative (Negative) SARS-CoV-2 Antigen (Rapid) Negative (NEGATIVE) Test 12/25/24 07:16 12/23/24 07:40 12/22/24 04:45 12/21/24 22:54 Eosinophils (%) (Auto) 1.0 % (0.0-7.0) Eosinophils # (Auto) 0.1 10 ^3/uL (0-0.8) Basophils # (Auto) 0 10 ^3/uL (0-0.2) Urine Mucus Few (None Seen) Urine Opiates Screen Neg (NEGATIVE) Urine Fentanyl Screen Neg (NEGATIVE) Urine Barbiturates Screen Neg (NEGATIVE) Urine Phencyclidine Screen Neg (NEGATIVE) Urine Amphetamines Screen Neg (NEGATIVE) Urine Benzodiazepines Screen Neg (NEGATIVE) Urine Cocaine Screen Neg (NEGATIVE) Urine Cannabinoids Screen Pos (NEGATIVE) Hemoglobin A1c 5.1 % A1C (<5.7) Total Bilirubin 0.7 mg/dL (0.2-1.0) Aspartate Amino Transferase (AST) 26 U/L (13-40) Alanine Aminotransferase (ALT) 28 U/L (7-40) Alkaline Phosphatase 120 U/L (46-116) Total Protein 7.2 g/dL (5.7-8.2) Albumin 4.5 g/dL (3.2-4.8) Lactic Acid Level 1.8 mmol/L (0.4-2.0) Creatine Kinase 20 U/L (46-171) Thyroid Stimulating Hormone (TSH) 1.51 uIU/mL (0.55-4.78) Other Laboratory Tests 12/26/24 14:34 12/26/24 06:06 Brief Hx & Hospital Course: Patient is 34 years old male with no significant past medical history came with a complaint of right leg pain. As per patient he scratches right leg couple of days before when he was jumping office trailer. Got a scratch. He came with a complain to the ER 2 days before and he was discharged with Keflex and naproxen. But his right leg swelling as got worse, is getting more swollen, red and tender and reddish. Pain was sharp 10/10, increased with movement. Patient denied any chest pain, shortness of breath, dysuria, diarrhea palpitation or fever. Initial lab workup revealed leukocytosis with WBC 19.6, ESR 60. Lactic acid 1.8. Right lower extremity Venous Doppler negative for DVT Social history:Lives with parents, smokes cigarettes, does marijuana, denies alcoholism. During the hospitalization, CT right lower extremity showed findings suggestive of cellulitis but ruled out abscess. Blood culture on admission showed no growth. He was started on IV Unasyn and vancomycin. Wound care was consulted. Patient continued to run febrile episodes, repeated blood cultures were done which which came preliminary negative. Patient has erythema started to resolve and patient started to ambulate. CRP decreased from 20 to 8, WBC trended down. Patient was not provided with tetanus toxoid vaccine as he took it in the last 6 months. He was extensively counseled regarding marijuana and tobacco cessation. 12/26-patient is hemodynamically stable, vitally stable, feels better, right lower extremity cellulitis has been resolving therefore he has been discharged home with the recommendations to follow up with the discharge clinic appointment within 7 days, follow up with primary care physician within 7 days. Patient is being discharged on Bactrim for the next 2 weeks, and he was advised also to take [id number] probiotics for the same duration. Patient agreed with the discharge plan. Side effects of medication were discussed with the patient. Operations or Procedures ORDERING PHYSICIAN: AVINASH NUNEZ DO PROCEDURE(s): RTLEXW - RT LOWER EXTREMITY W CON REASON: LEG WOUND PAIN REDNESS SWELLING ORDER NUMBER(s): [id number], ACCESSION NUMBER(s): [id number] CLINICAL INDICATION: LEG WOUND PAIN REDNESS SWELLING TECHNIQUE: CT of the right lower extremity was performed with 100 mL Omnipaque 300 intravenous contrast. Sagittal and coronal reformatted images are provided. COMPARISON: None CT Dose: CTDI volume is 11.1 mGy. Dose-length product is 1224.4 mGy*cm FINDINGS: No fracture or dislocation. Joint spaces are maintained. No cortical erosion or destruction. Soft tissue swelling in the anterior and lateral right lower extremity from about the knee to ankle joint. No fluid collection. IMPRESSION: 1. Soft tissue swelling which may reflect cellulitis. No fluid collection. 2. No cortical destruction to suggest osteomyelitis. All CT scans at this medical facility are performed using dose modulation techniques as appropriate to a performed exam including the following: Automated exposure control was utilized; adjustment of the MA and/or KV according to patient size; and use of iterative reconstruction technique. ATED BY: ADELA BERNAL MD DICTATED DATE/TIME: 12/22/24439 SIGNED BY: ADELA BERNAL MD SIGNED DATE/TIME: 12/22/24439 CC: Condition at Discharge: Stable Final Diagnosis/Problems List Sepsis due to right lower extremity cellulitis Right lower extremity cellulitis, ruled out abscess Ruled out lower extremity DVT Marijuana use dependence Tobacco use dependence Discharge Disposition: Home Discharge Instruct/Medications Diet: Regular Activity: Light activity Follow Up/Referral: Follow up with primary care physician within 7 days Follow up with discharge clinic appointment within 7 days Medications: Per EMR Discharge Statement: "Patient was advised to return to the ER or call 911 if any headaches, dizziness, shortness of breath, chest pain, abdominal pain, bleeding, fevers, or worsening of medical condition. Patient was counseled about treatment plan, medications, possible side effects, patientverbalized understanding. All questions were answered to the best of my ability. This discharge took greater then 30 minutes in planning, reviewing documentation, counseling the patient, and discussing with other team members." ASSESSMENT ASSESSMENT Assessment Sepsis due to right lower extremity cellulitis Right lower extremity cellulitis, ruled out abscess Ruled out lower extremity DVT Marijuana use dependence Tobacco use dependence Date of Service: Dec 26, 2024 Billing Provider: ERROL HAILE MD Common Visit Codes: 12449-JAT/OBS DISCH DAY >30min TERESSA PATEL RESIDENT Dec 26, 2024 16:38 ERROL HAILE MD Dec 27, 2024 08:59
[2024-12-26 17:00] VITALS: BP 152/99; PULSE 61; RESP 16; TEMP 98.3; O2SAT 99
[2024-12-26 17:13] VITALS: BP 149/94; PULSE 58; RESP 16; TEMP 98.2; O2SAT 99
== END 2024-12-26 18:40 | disposition home or self-care (01) | DRG 720 ==
LOC: ER 21:27 → OVERFLOW 23:41 → WEST WING 12-22 18:41
PROVIDERS: ADMIT Student in an Organized Health Care Education/Training Program; ATTEND Student in an Organized Health Care Education/Training Program
DX: A41.9 Sepsis, unspecified organism (principal); L03.115 Cellulitis of right lower limb; F17.210 Nicotine dependence, cigarettes, uncomplicated; Z20.822 Contact with and (suspected) exposure to COVID-19; F12.10 Cannabis abuse, uncomplicated; Z83.3 Family history of diabetes mellitus
CPT/HCPCS: 36415; 71045; 73701; 80048; 80053; 80202; 80307; 81001; 82550; 83036; 83605; 84443; 85007; 85025; 85027; 85652; 86141; 87040; 87081; 87426; 87804; 93971; 99291; G0378; J2543